=== PATIENT | female | born 1945 | race Caucasian/White ===

== ENCOUNTER → 2018-02-26 | Day surgery (SDC) | payer MEDICARE, BC ==
[2018-02-24 14:19] LABS: BASOPHILS % 0.3 % (0.0-1.0); EOSINOPHILS # (AUTO) 0.2 (0.0-0.4); EOSINOPHILS % 2.2 % (0.0-6.0); HEMATOCRIT 36.9 % (34.2-44.1); HEMOGLOBIN 12.5 g/dL (12.0-16.0); LYMPHOCYTES # (AUTO) 2.3 (1.0-3.2); LYMPHOCYTES % 33.6 % (18.0-39.1); MEAN CORPUSCULAR HEMOGLOBIN 29.3 pg (28-32); MEAN CORPUSCULAR HGB CONC 33.9 g/dL (31-35); MEAN CORPUSCULAR VOLUME 86.4 fL (81-99); MONOCYTES # (AUTO) 0.5 (0.2-0.8); MONOCYTES % 7.8 % (4.4-11.3); NEUTROPHILS # (AUTO) 3.8 (2.1-6.9); NEUTROPHILS % 55.7 % (38.7-80.0); PLATELET COUNT 267 x10e3/uL (140-360); RED BLOOD COUNT 4.27 x10e6/uL (3.6-5.1); RED CELL DISTRIBUTION WIDTH 13.1 % (11.7-14.4)
[~2018-02-26] MED LIST: ALIGN4 MG PO; BOTULINUM TOXIN TYPE A 100 UNIT VIAL IM ONE; FENTANYL CITRATE/PF 100MCG/2 ML INJ ONE; LINZESS PO; LIPITOR40 MG PO; MIDAZOLAM HCL 2 MG/2 ML VIAL ONE; NEXIUM40 MG PO; PROPOFOL IV EMULSION 10 MG/ML 20 ML VIAL ONE; TRIAMTERENE-HCTZ1 EA PO; TURMERIC PO; VITAMIN E400 UNI2 PO; [UNRECOGNIZED DRUG - OTHER] PO
[2018-02-26 12:55] VITALS: BP 124/63
== END | disposition home or self-care (01) ==
LOC: OR 09:30
PROVIDERS: ATTEND Internal Medicine Gastroenterology
DX: K31.84 Gastroparesis (principal); K29.70 Gastritis, unspecified, without bleeding; K22.70 Barrett's esophagus without dysplasia; K44.9 Diaphragmatic hernia without obstruction or gangrene; K22.8 Other specified diseases of esophagus; K21.9 Gastro-esophageal reflux disease without esophagitis; K58.9 Irritable bowel syndrome, unspecified; K63.89 Other specified diseases of intestine; K76.0 Fatty (change of) liver, not elsewhere classified; I10 Essential (primary) hypertension; R03.0 Elevated blood-pressure reading, without diagnosis of hypertension; E78.6 Lipoprotein deficiency; F41.9 Anxiety disorder, unspecified; Z01.810 Encounter for preprocedural cardiovascular examination; Z01.812 Encounter for preprocedural laboratory examination; Z87.891 Personal history of nicotine dependence; Z80.0 Family history of malignant neoplasm of digestive organs
CPT/HCPCS: 36415; 43236; 43239; 85025; 88305; 88312; 93005; J0587; J2250

== ENCOUNTER → 2018-05-15 | Outpatient (CLI) | payer MEDICARE, BC ==
[~2018-05-15] MED LIST changes: -BOTULINUM TOXIN TYPE A 100 UNIT VIAL IM ONE; -FENTANYL CITRATE/PF 100MCG/2 ML INJ ONE; -MIDAZOLAM HCL 2 MG/2 ML VIAL ONE; -PROPOFOL IV EMULSION 10 MG/ML 20 ML VIAL ONE
--- NOTE | 2018-05-15 11:45 | Diagnostic Imaging Report ---
EXAM: Thyroid Ultrasound INDICATION: ^MULTIPLE THYROID NODULES COMPARISON: Thyroid ultrasound 05/15/2017 TECHNIQUE: Transverse and sagittal images were obtained of the thyroid gland. FINDINGS: Thyroid gland: Size: Right lobe: 4.8 1.7 x 1.2 cm, mildly increased in size Left lobe: 1.5 x 4.4 x 1.8 cm, mild increased in size Isthmus: 0.3 cm, Normal in size Appearance: Heterogeneous echotexture without increased vascularity Masses/Nodules: Few bilateral thyroid nodules remaining stable since 05/15/2017. Right lobe: 1.4 cm mixed solid and cystic (1 pt) nodule in the interpolar region with smooth margin (0 pts), stsbl-mqdj-wdbr (0 pts), isoechoic (1 pt), and no calcifications (0 pts). Previously 1.3 cm. TR2, Not Suspicious: No FNA. 0.4 cm mixed solid and cystic (1 pt) nodule in the interpolar region with smooth margin (0 pts), xahra-uuto-yqkf (0 pts), isoechoic (1 pt), and no calcifications (0 pts). Previously 0.4 cm. TR2, Not Suspicious: No FNA. 0.6 cm mixed solid and cystic (1 pt) nodule in the interpolar region with smooth margin (0 pts), bumqy-kwze-gljb (0 pts), isoechoic (1 pt), and no calcifications (0 pts). Not well visualized on prior exam. TR2, Not Suspicious: No FNA. Left lobe: 1.9 cm mixed solid and cystic (1 pt) nodule in the inferior pole with smooth margin (0 pts), rtznw-awbv-oqtc (0 pts), isoechoic (1 pt), and no calcifications (0 pts). Previously 2.2 cm. TR2, Not Suspicious: No FNA. 0.4 cm mixed solid and cystic (1 pt) nodule in the superior pole with smooth margin (0 pts), gnobx-qrpa-rgnn (0 pts), isoechoic (1 pt), and no calcifications (0 pts). Previously 0.4 cm. TR2, Not Suspicious: No FNA. Parathyroid: No focal parathyroid masses. IMPRESSION: Stable few bilateral thyroid nodules with the largest on the left measuring up to 1.9 cm. TR2, Not Suspicious: No FNA. TI-RADS Lexicon: TR1, Benign: No FNA TR2, Not Suspicious: No FNA. TR3a (<1.5 cm): No follow-up. TR3b (1.5-2.5 cm), Mildly Suspicious: Follow at 1, 3, 5 years. TR3c (>2.5 cm), Mildly Suspicious: FNA. TR4a (<1.0 cm): No follow-up. TR4b (1.0-1.5 cm), Moderately Suspicious: Follow at 1, 2, 3, 5 years. TR4c (>1.5 cm), Moderately Suspicious: FNA. TR5a (<0.5 cm): No follow-up. TR5b (0.5-1.0 cm), Highly Suspicious: Follow at 1, 2, 3, 4, 5 years. TR5c (>1.0 cm), Highly Suspicious: FNA. *Rebiopsy if new suspicious features *No recommendation at this time for significant interval growth. Nodule Characteristics: * Benign features: cystic, hyperechoic, comet-tail artifact, complete halo * Minor suspicious features: solid, hypoechoic, other calcifications * Major suspicious features: microcalcifications, marked hypoechoic (less than strap muscle), suspicious lymph nodes, taller than wide, lobulated or ill-defined margins. Literature: ACR Thyroid Imaging, Reporting and Data System (TI-RADS): White Paper of the ACR TI-RADS Committee. J Am Scott Radiol 2017. Signed by: Dr. Caroline Rivera M.D. on 05/15/2018 11:42 AM
== END ==
LOC: US 09:33
PROVIDERS: ATTEND Otolaryngology
DX: E04.2 Nontoxic multinodular goiter (principal)
CPT/HCPCS: 76536

== ENCOUNTER → 2019-02-04 | Day surgery (SDC) | payer MEDICARE, BC ==
[2019-02-03 15:17] LABS: BASOPHILS % 0.6 % (0.0-1.0); EOSINOPHILS # (AUTO) 0.2 (0.0-0.4); EOSINOPHILS % 2.7 % (0.0-6.0); HEMOGLOBIN 12.5 g/dL (12.0-16.0); LYMPHOCYTES # (AUTO) 2.1 (1.0-3.2); LYMPHOCYTES % 29.5 % (18.0-39.1); MEAN CORPUSCULAR HEMOGLOBIN 29.3 pg (28-32); MEAN CORPUSCULAR HGB CONC 33.8 g/dL (31-35); MEAN CORPUSCULAR VOLUME 86.7 fL (81-99); MONOCYTES # (AUTO) 0.5 (0.2-0.8); MONOCYTES % 7.1 % (4.4-11.3); NEUTROPHILS # (AUTO) 4.2 (2.1-6.9); NEUTROPHILS % 59.8 % (38.7-80.0); PLATELET COUNT 330 x10e3/uL (140-360); RED BLOOD COUNT 4.27 x10e6/uL (3.6-5.1); RED CELL DISTRIBUTION WIDTH 13.2 % (11.7-14.4)
[~2019-02-04] MED LIST changes: +BOTULINUM TOXIN TYPE A 100 UNIT VIAL IM ONE; +FENTANYL CITRATE/PF 100MCG/2 ML INJ ONE; +PRAVASTATIN SOD40 MG PO; +PROPOFOL IV EMULSION 10 MG/ML 20 ML VIAL ONE
[2019-02-04 11:55] VITALS: BP 128/73
== END | disposition home or self-care (01) ==
LOC: OR 08:35
PROVIDERS: ATTEND Internal Medicine Gastroenterology
DX: K31.84 Gastroparesis (principal); K29.70 Gastritis, unspecified, without bleeding; K21.0 Gastro-esophageal reflux disease with esophagitis; K22.70 Barrett's esophagus without dysplasia; K44.9 Diaphragmatic hernia without obstruction or gangrene; I10 Essential (primary) hypertension; Z88.3 Allergy status to other anti-infective agents; Z01.810 Encounter for preprocedural cardiovascular examination; Z01.812 Encounter for preprocedural laboratory examination; Z68.30 Body mass index [BMI] 30.0-30.9, adult
CPT/HCPCS: 36415; 43236; 43239; 85025; 88305; 88312; 93005; J0587; J2704; J3010

== ENCOUNTER → 2019-02-20 | Outpatient (CLI) | payer MEDICARE, BC ==
[~2019-02-20] MED LIST changes: -BOTULINUM TOXIN TYPE A 100 UNIT VIAL IM ONE; -FENTANYL CITRATE/PF 100MCG/2 ML INJ ONE; -PROPOFOL IV EMULSION 10 MG/ML 20 ML VIAL ONE
--- NOTE | 2019-02-20 14:14 | Diagnostic Imaging Report ---
Left hip, 2 views. Right foot, 3 views. History: Left hip pain. Right foot foreign body. Findings: Oval soft tissue density overlying the lateral aspect of the left hip likely represents overlying structure.. There is no evidence of radiopaque foreign body. Bone mineralization is normal. There is no evidence of fracture or dislocation. There are no lytic or sclerotic lesions. The left hip joint is normal. There is mild hallux valgus deformity of the right foot with mild first MTP DJD. The remaining joint spaces of the right foot are within normal limits. Posterior and plantar right calcaneal spurs are present. IMPRESSION: 1. Normal left hip. 2. Right foot calcaneal spurs and mild hallux valgus deformity. Signed by: Omega Brito on 02/20/2019 2:11 PM
== END ==
LOC: RAD 12:59
PROVIDERS: ATTEND Internal Medicine
DX: M25.552 Pain in left hip (principal); M79.671 Pain in right foot; M77.31 Calcaneal spur, right foot; M20.11 Hallux valgus (acquired), right foot

== ENCOUNTER → 2019-05-19 | Outpatient (CLI) | payer MEDICARE, BC ==
--- NOTE | 2019-05-19 15:23 | Diagnostic Imaging Report ---
EXAM: Thyroid Ultrasound INDICATION: ^MULTIPLE THYROID NODULES COMPARISON: 05/15/2018 TECHNIQUE: Transverse and sagittal images were obtained of the thyroid gland. FINDINGS: Thyroid gland: Size: Right lobe: 4.7 x 2.3 x 1.8 cm Left lobe: 4.6 x 1.7 x 1.4 cm Isthmus: 0.4 cm Appearance: Heterogeneous echotexture without increased vascularity Right lobe: 1.3 x 0.9 x 0.8 cm mixed solid and cystic (1 pt) nodule in the interpolar region with smooth margin (0 pts), gwohb-xlyq-zism (0 pts), isoechoic (1 pt), and no calcifications (0 pts). Previously 1.4 cm. TR2, Not Suspicious: No FNA. 0.5 x 0.8 x 0.5 cm mixed solid and cystic (1 pt) nodule in the interpolar region with smooth margin (0 pts), fijrj-yecu-xklt (0 pts), isoechoic (1 pt), and no calcifications (0 pts). Previously 0.4 cm. TR2, Not Suspicious: No FNA. 0.5 x 0.5 x 0.4 cm mixed solid and cystic (1 pt) nodule in the interpolar region with smooth margin (0 pts), jbkms-gves-hhev (0 pts), isoechoic (1 pt), and no calcifications (0 pts). Previously 0.4 cm. TR2, Not Suspicious: No FNA. Left lobe: 2.2 x 1.7 x 1.3 cm mixed solid and cystic (1 pt) nodule in the interpolar region with smooth margin (0 pts), henvb-vpma-vdhv (0 pts), isoechoic (1 pt), and no calcifications (0 pts). Previously 1.9 cm. TR2, Not Suspicious: No FNA. Parathyroid: No focal parathyroid masses. IMPRESSION: Stable bilateral thyroid nodules with the largest on the left measuring up to 2.2 cm. None of these nodules (TR2) require FNA or further imaging follow-up given stability since 2017. TI-RADS Lexicon: TR1, Benign: No FNA TR2, Not Suspicious: No FNA. TR3a (<1.5 cm): No follow-up. TR3b (1.5-2.5 cm), Mildly Suspicious: Follow at 1, 3, 5 years. TR3c (>2.5 cm), Mildly Suspicious: FNA. TR4a (<1.0 cm): No follow-up. TR4b (1.0-1.5 cm), Moderately Suspicious: Follow at 1, 2, 3, 5 years. TR4c (>1.5 cm), Moderately Suspicious: FNA. TR5a (<0.5 cm): No follow-up. TR5b (0.5-1.0 cm), Highly Suspicious: Follow at 1, 2, 3, 4, 5 years. TR5c (>1.0 cm), Highly Suspicious: FNA. *Rebiopsy if new suspicious features *No recommendation at this time for significant interval growth. Nodule Characteristics: * Benign features: cystic, hyperechoic, comet-tail artifact, complete halo * Minor suspicious features: solid, hypoechoic, other calcifications * Major suspicious features: microcalcifications, marked hypoechoic (less than strap muscle), suspicious lymph nodes, taller than wide, lobulated or ill-defined margins. Literature: ACR Thyroid Imaging, Reporting and Data System (TI-RADS): White Paper of the ACR TI-RADS Committee. J Am Scott Radiol 2017. Signed by: Yadiel Monson MD on 05/19/2019 3:20 PM
== END ==
LOC: US 09:26
PROVIDERS: ATTEND Otolaryngology
DX: E04.2 Nontoxic multinodular goiter (principal)
CPT/HCPCS: 76536